=== PATIENT | female | born 1995 | race Caucasian/White ===

== ENCOUNTER → 2024-12-08 | Outpatient (CLI) | payer OTHER ==
[2024-12-08 08:43] LABS: HCG, SERUM QUANTITATIVE 850.0 MIU/ML (<4.2)
[2024-12-08 08:45] LABS: PROGESTERONE 22.04 NG/ML
== END ==
LOC: M LAB 07:39
PROVIDERS: ATTEND Obstetrics & Gynecology
DX: O09.00 Supervision of pregnancy with history of infertility, unspecified trimester (principal); Z3A.00 Weeks of gestation of pregnancy not specified

== ENCOUNTER 2025-01-09 09:21 | Emergency (ER) | payer OTHER ==
[~2025-01-09] VITALS: Ht 162.6 cm; Wt 72.8 kg
[2025-01-09 13:06] VITALS: O2SAT 98
[2025-01-09 13:15] VITALS: BP 115/72
[2025-01-09] MEDS: RHOGAM 300MCG (1500IU) INJ IM ONE (15:43)
[2025-01-09 15:45] VITALS: TEMP 98.4
== END 2025-01-09 15:50 | disposition home or self-care (01) ==
LOC: M ED 09:21
DX: O03.9 Complete or unspecified spontaneous abortion without complication (principal)
CPT/HCPCS: 76856; 84702; 86850; 86900; 86901; 93976; 96372; 99285; J2790